=== PATIENT | male | born 1955 | race Caucasian/White ===

== ENCOUNTER 2017-08-17 20:55 | Emergency (ER) | payer MEDICARE, MEDICAID ==
[2017-08-17 21:01] VITALS: TEMP 97.8
[2017-08-17] MEDS ORDERED: NITROGLYCERIN 0.4 MG TAB SL PRN (21:02)
[2017-08-17] MEDS ORDERED: ASPIRIN 81 MG CHEWABLE CTB PO STA (21:02)
[2017-08-17] MEDS ORDERED: SODIUM CHLORIDE 0.9% FLUSH 10 ML SOL IV PRN (21:02)
[2017-08-17 21:08] LABS: BASOPHILS % (AUTO) 1 % (0-3); EOSINOPHILS % (AUTO) 13 % (0-9); HEMATOCRIT 36 % (39-53); LYMPHOCYTES % (AUTO) 28.3 % (10-50); MEAN CORPUSCULAR HEMOGLOBIN 31.3 pg (27.0-32.0); MEAN CORPUSCULAR HGB CONC 35.7 gm/dl (32.0-36.0); MEAN CORPUSCULAR VOLUME 88 fL (80-100); MONOCYTES % (AUTO) 7.3 % (0-12)
[2017-08-17 21:23] LABS: BLOOD UREA NITROGEN 20 mg/dl (7-18); CALCIUM 8.4 mg/dl (8.5-10.1); CARBON DIOXIDE 30.4 mEq/L (21-32); CHLORIDE 98 mMol/L (98-107); CREATINE KINASE 356 U/L (39-308); CREATININE 1.17 mg/dl (0.80-1.30); GLOM FILT RATE 63 mL/min (>60); GLUCOSE 274 mg/dl (74-106); POTASSIUM 4.2 mMol/L (3.5-5.1); SODIUM 136 mMol/L (136-145); TROP I < 0.017 ng/ml (0.000-0.056)
[2017-08-17] MEDS ORDERED: ASPIRIN 81 MG CHEWABLE CTB ONE (21:42)
[2017-08-17 21:51] VITALS: PULSE 66
[2017-08-17 23:22] VITALS: BP 150/82; RESP 20; O2SAT 96
== END 2017-08-17 23:09 | disposition home or self-care (01) | DRG 313 ==
LOC: ED 20:55
DX: R07.9 Chest pain, unspecified (principal); R06.02 Shortness of breath
CPT/HCPCS: 71045; 80048; 82550; 84484; 85025; 93005; 99284